=== PATIENT | male | born 1970 | race Hispanic/Latino ===

== ENCOUNTER 2023-12-27 08:16 | Emergency (ER) | payer SELFPAY ==
[2023-12-27 08:16] VITALS: BP 96/64; PULSE 59; RESP 18; TEMP 36.4; O2SAT 97; BMI 21.0
[2023-12-27 08:32] VITALS: TEMP 36.6
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
--- NOTE | 2023-12-27 08:43 | EKG12_ITS ---
Test Reason : HEAD INJURY Blood Pressure : / mmHG Vent. Rate : 051 BPM Atrial Rate : 051 BPM P-R Int : 148 ms QRS Dur : 088 ms QT Int : 414 ms P-R-T Axes : 045 -17 027 degrees QTc Int : 381 ms Sinus bradycardia Otherwise normal ECG Confirmed by MACO ROWLAND, FADY ([id number]), research editor GILLIAN PEREZ ([id number]) on 12/28/2023 8:08:51 AM Referred By: Confirmed By:FADY DEWEY MD
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
[2023-12-27 08:58] LABS: Absolute Lymphocyte Count 1.35 X10^3/uL (0.83-4.51); Absolute Neutrophil Count 2.2 X10^3/uL (2.0-7.7); Basophil# 0.02 X10^3/uL; Basophil% 0.5 % (0-1); Eosinophil# 0.09 X10^3/uL; Eosinophils% 2.3 % (0-5); Hematocrit 41.9 % (40-54); Hemoglobin 13.8 g/dL (13.0-16.5); Lymphocyte # 1.35 X10^3/ul (0.83-4.51); Lymphocyte % 35.2 % (19-41); Mean Corp Hgb Conc 32.9 g/dL (32-36); Mean Corpuscular Hgb 28.8 pg (27.0-32.0); Mean Corpuscular Volume 87.5 fL (80-94); Mean Platelet Vol. 10.8 fl (6.2-12.0); Monocyte# 0.19 X10^3/uL; NRBC Flagged by Analyzer 0 % (0-5); Neutrophil # 2.16 X10^3/uL (2.7-7.7); Neutrophil % 56.5 % (47-70); Platelet Count 245 K/mm3 (150-450); RBC Distribution Width CV 13.2 % (11.6-14.6); RBC Distribution Width SD 42.2 fl (35.1-43.9); Red Blood Count 4.79 M/mm3 (4.6-6.2); White Blood Count 3.8 K/mm3 (4.4-11.0)
[2023-12-27 09:16] LABS: AST(SGOT) 19 U/L (15-37); Alanine Aminotransfer ALT/SGPT 29 U/L (16-61); Albumin, Serum 3.5 g/dL (3.2-5.0); Alkaline Phosphatase 84 U/L (45-117); Anion Gap 7 (5-15); BUN 7 mg/dL (7-18); BUN/Creat Ratio 10.4 RATIO (10-20); Bilirubin, Direct 0.22 mg/dL (0.00-0.30); Calcium,Total 8.5 mg/dL (8.5-10.1); Chloride 113 mmol/L (98-107); Creatinine, Serum 0.68 mg/dL (0.70-1.30); EST Glomerular Filtration Rate 127 mL/min (>60); Est Glom Filt Rate - Afr Amer 153 mL/min (>60); Estimated Creatinine Clearance 100.36 ml/min; Globulin 3.6 g/dL (2.2-4.2); Glucose 120 mg/dL (74-106); Potassium 3.3 mmol/L (3.5-5.1); Protein, Total 7.1 g/dL (6.4-8.2); Sodium Level 144 mmol/L (136-145); Troponin-I HS 31 pg/mL (3.0-78.0)
[2023-12-27] MEDS: Metoclopramide 10 MG/2 ML Vial IV (09:37)
[2023-12-27] MEDS: DiphenhydrAMINE 50 MG/ML Syringe 25 MG IV (09:37)
[2023-12-27] MEDS: Lidocaine 1% /Epi 1:100 (20ml) 20 ML Vial 30 ML INFILT (09:42)
[2023-12-27 10:00] LABS: Bacteria 0 SEEN /hpf (None Seen); Mucous, Urine 0 SEEN /hpf (<or=2+); Red Blood Cells-Urine 0 SEEN /hpf (0-5); Squamous Epithelial Cells - UA 0 SEEN /hpf (0-5); White Blood Cells 0 SEEN /hpf (0-5)
[2023-12-27 10:02] LABS: Color, Urine Straw (Yellow); Glucose, Dipstick Normal (Normal); Ketone-Dipstick Negative (Negative); Leukocyte Esterase-Dipstick Negative /ul (Negative); Nitrite-Dipstick Negative (Negative); Occult Blood-Urine 10 /ul (Negative); Protein-Dipstick Negative (Negative); Urine Bilirubin Dipstick Negative (Negative); Urine Clarity Clear (Clear); Urine Urobilinogen Normal (Normal); Urine pH 6.5 (5.0 - 8.0)
[2023-12-27 10:16] VITALS: BP 89/60; PULSE 52; RESP 18; O2SAT 96
[2023-12-27 10:24] LABS: Amphetamine Urine VISTA NEGATIVE (<1000 ng/mL); Barbiturate Urine VISTA NEGATIVE (< 200 ng/mL); Benzodiazepine Urine VISTA NEGATIVE (< 200 ng/mL); Cocaine Urine VISTA NEGATIVE (< 300 ng/mL); Ecstacy Urine VISTA NEGATIVE (< 500 ng/mL); Methadone Urine VISTA NEGATIVE (< 300 ng/mL); PCP Urine VISTA NEGATIVE (< 25 ng/mL); THC Urine VISTA NEGATIVE (< 50 ng/mL); Vista UDS pH Range 6
[2023-12-27 12:00] VITALS: BP 92/76; PULSE 50; RESP 16; O2SAT 98
[2023-12-27 13:00] VITALS: BP 98/78; PULSE 54; RESP 16; TEMP 36.4; O2SAT 99
== END 2023-12-27 13:04 | disposition home or self-care (01) ==
PROVIDERS: Emergency Provider Student in an Organized Health Care Education/Training Program; Visit Provider Student in an Organized Health Care Education/Training Program
DX: S01.01XA Laceration without foreign body of scalp, initial encounter (principal); S06.0X0A Concussion without loss of consciousness, initial encounter; S00.83XA Contusion of other part of head, initial encounter; Y00.XXXA Assault by blunt object, initial encounter; F10.129 Alcohol abuse with intoxication, unspecified; R00.1 Bradycardia, unspecified; M54.2 Cervicalgia; R10.33 Periumbilical pain; D72.819 Decreased white blood cell count, unspecified
CPT/HCPCS: 12002; 70450; 70486; 70496; 70498; 71260; 72125; 74177; 80048; 80076; 80307; 80320; 81001; 84484; 85025; 93005; 96374; 96375; 99283; J7030; Q9967; G0480

== ENCOUNTER 2024-09-27 09:16 | Emergency (ER) | payer MEDICAID, SELFPAY ==
[2024-09-27 09:17] VITALS: BP 130/81; PULSE 55; RESP 16; TEMP 37.1; O2SAT 100
--- NOTE | 2024-09-27 09:51 | EX.ED.DYSGE1 ---
HPI History of Present Illness Chief Complaint: General Illness Informant: patient Limited: language barrier (Cruise Coordinator used for all history/encounter) Narrative Narrative: Patient states for the last 1 to 2 days, he has been developing pain that started in a tooth, and is now in his left jaw and radiating up to his left buddhism. He denies a internal headache. Denies any vision problems. No fevers or chills. No bleeding or discharge. States he is having some swelling in his general area feels like it is on the inside of his jaw. No history of dental abscesses or other issues like this. Having trouble opening his mouth because of all of this. PFSH PFSH Medical History no medical history no medical history Home Medications ?Medication ?Instructions ?Recorded ?Last Taken ?Type amoxicillin 500 mg tablet 500 mg PO TID #30 tabs 09/27/24 Unknown Rx naproxen 500 mg tablet 500 mg PO BID PRN #10 tabs 09/27/24 Unknown Rx Allergy/AdvReac Type Severity Reaction Status Date / Time No Known Allergies Allergy Verified 09/27/24 09:16 Surgical History no surgical history Social History Smoking Status: Never smoker ROS ROS ED Constitutional Constitutional ED: Denies chills or fever(s) Eyes Eyes: Denies change in vision or double vision ENT ENT ED: Reports as per HPI and dental pain; Denies sinus pain, sore throat or throat swelling Cardiovascular Cardiovascular: Denies chest pain or palpitations Respiratory/Chest Respiratory/Chest: Denies cough or dyspnea Integumentary Denies abscess or rash Neurologic Neurologic: Denies headache(s), paresthesias or weakness EXAM Physical Exam Const Vital Signs: 09/27/24 09:17 09/27/24 09:33 Temperature 98.7 F Temperature Source Temporal Pulse Rate 55 L Respiratory Rate 16 Respiratory Effort Normal Non-Labored Respiratory Pattern Normal Blood Pressure 130/81 H Blood Pressure Mean 97 Pulse Ox 100 Oxygen Delivery Method Room Air Positive well nourished and well developed Constitutional Narrative: Well-appearing in no distress. Normal voice. General Appearance ED: well developed and NAD HEENT HEENT Narrative: Having trouble opening his mouth with mild trismus. Patient uses his fingers to help pry his jaw open. He can open his mouth some, and I can visualize posterior pharynx which is clear, and there is an obvious tender swollen area consistent with an abscess that is intraorally between the left mandibular and maxillary molars near the reflection of buccal and gingival tissue. Externally there is no major asymmetry. There is no sublingual edema, tenderness, fullness, or tongue elevation. Stensen's duct is normal-appearing. The dentition that is present is not majorly tender. There is no gingival abnormality or bleeding to suggest ANUG. There is no spontaneous discharge of any type or bleeding. There is no stridor and his voice is normal. Face and Sinus: sinuses nontender Throat: posterior oropharynx normal Eyes PERRL and EOMs intact bilaterally Neck supple Neck Narrative: Tender left submandibular area no obvious large nodes or palpable abscess externally. Resp normal respiratory effort Neuro oriented x3 and CN's II-XII intact bilaterally Sensorium / Orientation: alert Gait (Neuro): normal gait Psych mental status grossly normal and thought process normal Skin no rashes or lesions noted and no wounds MDM MDM MDM Narrative Medical decision making narrative: As I discussed with the patient, my recommendation is to treat this like a dental abscess with attempted aspiration, as well as antibiotics. I recommended abscess aspiration because if pus present he will get better faster. We discussed the risks, which basically is inflicting some brief discomfort and not being able to obtain pus, and less likely puncturing the carotid artery but I do not anticipate going that deep. This was done see the procedure note, there were no complications or significant bleeding. Started the patient on amoxicillin and Naprosyn given prescriptions, and he wants a note saying he can go back to work. 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 Procedures Other Procedures Procedure(s): Dental abscess aspiration: After informed consent from the patient and topical anesthesia with Cetacaine spray 3 seconds, intraoral approach, using sterile 21-gauge needle, attempted aspiration of abscess with 2 different redirections, only scant amount of purulent material to be expressed. Tolerated well no complications. Patient able to rinse with ice water and drink afterwards without difficulty. Discharge Plan Triage Chief Complaint: General Illness ED Provider: Luis Gómez Dx/Rx/DC Orders Clinical Impression: Dental abscess Instructions: Dental Abscess Prescriptions: New amoxicillin 500 mg tablet 500 mg PO TID Qty: 30 0RF naproxen 500 mg tablet 500 mg PO BID PRN Qty: 10 0RF Primary Care Provider: Care Physician,Nereida Primary Referrals: Dentist,Your [STAFF PHYSICIAN] - As soon as possible (herber lista adjunta si necesita un dentista) Print Language: [place] Disposition Disposition: Home, Self Care
[2024-09-27] MEDS: AMOXICILLIN 500 MG CAPSULE PO (10:23)
[2024-09-27] MEDS: Naproxen 500 MG Tablet PO (10:23)
== END 2024-09-27 10:58 | disposition home or self-care (01) ==
PROVIDERS: Emergency Provider Emergency Medicine; Visit Provider Emergency Medicine
DX: K04.7 Periapical abscess without sinus (principal)
CPT/HCPCS: 41800; 99282